=== PATIENT | female | born 1940 ===

== ENCOUNTER 2017-07-15 16:06 | Emergency (ER) | payer MEDICARE, MEDICAID ==
[2017-07-15 16:06] VITALS: BMI 28.1
--- NOTE | 2017-07-15 16:29 | C.PDOC ---
History Of Present Illness 76 yo female w/PMhx of B/L Knees OA come in accompanied by guardian for evaluation of L>R knee pain exacerbation for past few days. Pt sts, " my knees felt weak and I fell early tdaoy, landed onto my knees". Pt sts, pain is more over back of Left knee, localized, worse with weight bearing. Otherwise, pt denies head injury, LOC, syncope, headache, dizziness, N/V, visual changes, focal deficits, CP, dyspnea, palpitation, diaphoresis, back pain, hips pain, denies new deformity to B/L knees, denies sensory or vascular deficits to B/L LEs. Ambulate to ED with baseline gait. Time Seen by Provider: 07/15/17 16:12 Chief Complaint (Nursing): Lower Extremity Problem/Injury History Per: Patient Past Medical History Reviewed: Historical Data, Nursing Documentation, Vital Signs Vital Signs: Last Vital Signs Temp 98.7 F 07/15/17 18:18 Pulse 66 07/15/17 18:18 Resp 18 07/15/17 18:18 BP 137/76 07/15/17 18:18 Pulse Ox 100 07/15/17 18:18 - Medical History PMH: Arthritis, Diabetes, HTN Surgical History: Cholecystectomy Family History: States: Unknown Family Hx - Social History Hx Tobacco Use: No Hx Alcohol Use: No Hx Substance Use: No - Immunization History Hx Influenza Vaccination: Yes Review Of Systems Except As Marked, All Systems Reviewed And Found Negative. Eyes: Negative for: Vision Change Cardiovascular: Negative for: Chest Pain, Palpitations Gastrointestinal: Negative for: Nausea, Vomiting, Abdominal Pain Genitourinary: Negative for: Incontinence Musculoskeletal: Positive for: Other (B/L knees pain). Negative for: Neck Pain , Back Pain Skin: Negative for: Rash, Bruising Neurological: Negative for: Weakness, Numbness, Altered Mental Status, Headache , Dizziness Physical Exam - Physical Exam Appears: Well, Non-toxic, No Acute Distress Skin: Normal Color, Warm, Dry, No Ecchymosis Head: Atraumatic, Normacephalic Eye(s): bilateral: PERRL Neck: Trachea Midline, No Midline Cervical Tenderness, No Paracervical Tenderness, No Step Off Deformity, Supple Chest: Symmetrical Back: No Vertebral Tenderness, No Paraspinal Tenderness Extremity: Normal ROM (B/L LEs), Tenderness (mod over posterior aspect Left knee ), No Pedal Edema, No Calf Tenderness (B/L), No Deformity, No Swelling Neurological/Psych: Oriented x3, Normal Speech, Normal Motor, Normal Sensation, Normal Reflexes ED Course And Treatment O2 Sat by Pulse Oximetry: 99 Pulse Ox Interpretation: Normal - Other Rad pelvis with B/L hips X-Ray: Interpreted by Me, Viewed By Me Interpretation: no acute fx or dislocation B/L knees X-Ray: Interpreted by Me, Viewed By Me Interpretation: L>R mod DJD, no acut efx or dislocation Progress Note: On re-evaluation, pt is afebrile, hemodynamicaly stable. NOn- toxic. Ambulatory in ED with baseline gait ( activity assistant of cane). Head: AT/NC. neck: SUpple, (-) midline tenderness. B/L LEs: FAROm of B/L knees, no ecchymoses, no deformity, no neurovascular deficits, no calf tenderbness. Neurologicaly intact. Imagings review, no acute fx or dislocation onted. Eyal wrap applied to B/L Kness. Pt and family advised and ref. to f/u with PMD, Ortho in 2-3 days for re-eavl. return if any new changes. Disposition Counseled Patient/Family Regarding: Studies Performed, Diagnosis, Need For Followup, Rx Given - Disposition Referrals: John Delcid [Medical Doctor] - Sam Rush III, MD [Staff Provider] - [facility] [Outside] Disposition: HOME/ ROUTINE Disposition Time: 17:00 Condition: STABLE Additional Instructions: LIght duty, avoid prolong walking for 1-2 weeks take medication as prescribed Follow up with PMD, Orthopedist ( [facility] here at Clinic facility) for further evaluation, MRI of B/L knees and treatment return to ED if any worsening or new changes. Instructions: Osteoarthritis (DC), Knee Pain Forms: [email or web address] (Latvian) Print Language: FRENCH - Clinical Impression Clinical Impression: Arthralgia of knee
--- NOTE | 2017-07-15 17:39 | RAD ---
PROCEDURE: HISTORY: pain COMPARISON: None. FINDINGS: BONES: Bilateral medial femoral tibial joint space narrowing. Bilateral patellofemoral joint space narrowing is also probable. JOINTS: Osteoarthrosis as above JOINT EFFUSION: No large joint effusion. Small effusions not excluded OTHER FINDINGS: None. IMPRESSION: Osteoarthrosis. No fracture
--- NOTE | 2017-07-15 17:40 | RAD ---
PROCEDURE: HISTORY: injury COMPARISON: None TECHNIQUE: AP view of the pelvis and applicable frog leg views obtained. FINDINGS: No fracture or dislocation. Bilateral superolateral hip joint space narrowing Bilateral sacroiliac and pubic symphyseal joints unremarkable. Left inferior matt pelvic phleboliths. IMPRESSION: No fracture or dislocation. Bilateral hip arthrosis
[2017-07-15 18:20] VITALS: BP 137/76; PULSE 66; RESP 18; TEMP 98.7
[2017-07-17 15:33] VITALS: O2SAT 99
== END 2017-07-15 18:20 | disposition home or self-care (01) ==
LOC: C.ER 16:06
DX: M25.562 Pain in left knee (principal)